=== PATIENT | male | born 1980 | race Caucasian/White ===

== ENCOUNTER 2020-11-04 08:09 | Emergency (ER) | payer OTHER, MEDICAID, SELFPAY ==
[2020-11-04 08:10] VITALS: BP 148/74; PULSE 75; RESP 18; TEMP 36.6; O2SAT 96; BMI 29.8
--- NOTE | 2020-11-04 08:31 | DI.RAD.S_ITS ---
PROCEDURE: XR CHEST 1V INDICATIONS: dysnea TECHNIQUE: One view of the chest was acquired. COMPARISON: [facility], CT, CHEST WITH CONTRAST, 04/11/2013, 13:06. [facility], CR, XR CHEST 2 VIEWS, 04/11/2020, 9:57. [facility], CR, XR CHEST 1 VIEW, 04/06/2020, 19:19. FINDINGS: Surgical changes and devices: None. Lungs and pleura: Lungs are clear. No pleural effusions or pneumothorax. Mediastinum: Mediastinal contours appear normal. Heart size is normal. Bones and chest wall: No suspicious bony lesions. Overlying soft tissues appear unremarkable. IMPRESSION: No acute cardiopulmonary abnormality. Dictated by: Bony Smith M.D. on 11/04/2020 at 8:01 Approved by: Bony Smith M.D. on 11/04/2020 at 8:02
--- NOTE | 2020-11-04 08:35 | ED_ITS ---
HPI - URI/Sore Throat General Chief Complaint: Weakness Stated Complaint: sweats/body feels heavy Time Seen by Provider: 11/04/20 08:10 History of Present Illness HPI Narrative: 40-year-old gentleman with a history of asthma and spontaneous pneumothorax and number of months ago presents with 5 days of fatigue, sweats, fevers, body aches, headache, mild cough and diarrhea. He works as an set up mechanic automatic line and had been going to work prior to Tuesday. He notes that over the past few months, since the spontaneous pneumothorax that did not require a chest tube, his asthma has been a bit worse and he has been using his albuterol inhaler more frequently. He notes that he has lost his inhaler and has not used for the last week. Describes no specific chest pain, palpitations, dyspnea, vomiting, lower extremity edema. Related Data Previous Rx's Medication Instructions Recorded albuterol sulfate 2 puff INHALATION Q6H PRN #8.5 g 11/04/20 beclomethasone dipropionate 1 inh INHALATION BID #10.6 g 11/04/20 Allergies Allergy/AdvReac Type Severity Reaction Status Date / Time Penicillins Allergy Unknown CHILDHOOD Verified 11/04/20 08:33 Review of Systems Review of Systems Narrative: Remainder of review of systems including constitutional, ENT, cardiovascular, respiratory, GI, , musculoskeletal, skin, neurologic and psychiatric systems reviewed and are unremarkable except as noted in HPI. Patient History Medical History Asthma Social History Smoking Status: Current every day smoker Exam Narrative Exam Narrative: General: Mildly ill-appearing but in no acute distress. Able to give a complete and coherent history. Well-nourished well-developed HEENT: Moist mucous membranes, normal sclera with reactive pupils, Neck: No JVD, supple Respiratory: Lungs with mild scattered wheezing no rales no rhonchi. Full and symmetrical air movement Cardiac: Regular rate and rhythm no murmurs no bruits Abdomen: Soft nontender good bowel tones, no flank pain Skin: Warm and dry, no rashes Neurologic: Grossly neurologically intact with no obvious asymmetries or abnormalities Extremities: No trauma, well perfused Psych: Cooperative, appropriate insight and affect Initial Vital Signs Initial Vital Signs: Vital Signs Temperature 97.9 F 11/04/20 08:10 Pulse Rate 75 11/04/20 08:10 Respiratory Rate 18 11/04/20 08:10 Blood Pressure 148/74 H 11/04/20 08:10 Pulse Oximetry 96 11/04/20 08:10 Course Orders Ordered: ED Orders 11/04/20 08:25 COVID19 Stat 11/04/20 08:31 XR chest 1V Stat Discontinued Medications Acetaminophen (Acetaminophen 325 Mg Tablet) 975 mg PO NOW ONE Stop: 11/04/20 08:32 Last Admin: 11/04/20 08:59 Dose: Not Given Documented by: BTONER Acetaminophen (Acetaminophen 325 Mg Tablet) 975 mg PO NOW ONE Stop: 11/04/20 09:01 Last Admin: 11/04/20 09:10 Dose: 975 mg Documented by: [email or web address] Albuterol (Albuterol Hfa 200 Puff/18 Gm Inh (Covid Pos/Vent Pts)) 2 puff INH NOW ONE Stop: 11/04/20 08:32 Last Admin: 11/04/20 09:04 Dose: 2 puff Documented by: JOVAN Vital Signs Vital signs: Vital Signs - 8 hr 11/04/20 08:10 11/04/20 09:09 11/04/20 09:23 Temperature 97.9 F Pulse Rate 75 60 60 Respiratory Rate 18 16 Blood Pressure 148/74 H 127/80 Pulse Oximetry 96 98 97 MDM - URI/Sore Throat Medical Records Attestation: I reviewed the patient's medical records. Lab Data Attestation: I reviewed the patient's lab results. Labs: Lab Results 11/04/20 Range/Units 08:25 COVID-19 PCR Negative (Negative) Imaging Data Chest x-ray: Radiologist's Impression: FINDINGS: Surgical changes and devices: None. Lungs and pleura: Lungs are clear. No pleural effusions or pneumothorax. Mediastinum: Mediastinal contours appear normal. Heart size is normal. Bones and chest wall: No suspicious bony lesions. Overlying soft tissues appear unremarkable. IMPRESSION: No acute cardiopulmonary abnormality. Dictated by: Bony Smith M.D. on 11/04/2020 at 8:01 MDM Narrative Medical decision making narrative: 40-year-old gentleman with upper respiratory symptoms in the setting of asthma for the last 5 days. He is COVID negative. No evidence of hypoxia or significant respiratory distress. No pneumonia and no pneumothorax. Discussed viral syndromes and will discharge him with both QVAR and albuterol inhalers and recommend that he follow-up with his primary care physician in the next weeks regarding his asthma management. He is safe for home discharge Discharge Plan Departure Patient Disposition: Home Clinical Impression: Acute upper respiratory infection Asthma Qualifiers: Asthma severity: moderate Asthma persistence: persistent Asthma complication type: with acute exacerbation Qualified Code(s): J45.41 - Moderate persistent asthma with (acute) exacerbation Instructions: DI for Asthma -- Adult Activity Restrictions/Additional Instructions: Thank you for coming in today You do have an upper respiratory infection and it is not COVID. Your chest x- ray is reassuring. There is no evidence of a bacterial pneumonia and no recurrent pneumothorax. You are likely going to improve no matter what we do today. Treating your asthma a bit more effectively may get to feeling better faster. I am going to suggest that you use an inhaled steroid, QVAR/beclomethasone daily. Using your spacer do 2 puffs of albuterol followed by a single puff of the QVAR every morning and every evening followed by rinsing her mouth out with water. You may find that as you begin to feel better that you do not need her albuterol and the QVAR puff in the morning and the evening is enough to keep your asthma nicely controlled. If you feel like you are getting worse over the next few days or you feel like you of completely gotten better and then developed a fever and productive cough you do need to be seen again. I would recommend that you follow-up with your primary care physician in the next couple of weeks regarding your asthma. I have given you a copy of the radiology interpretation of your x-ray to share with your primary care physician in follow-up after your recent pneumothorax Prescriptions: New albuterol sulfate 90 mcg/actuation HFA aerosol inhaler 2 puff inhalation Q6H PRN (Reason: shortness of breath or wheezing) Qty: 8.5 RF: 3 beclomethasone dipropionate 80 mcg/actuation HFA aerosol breath activated 1 inh inhalation BID Qty: 10.6 RF: 3 Referrals: Hitesh Peace DO [Primary Care Provider] -
[2020-11-04 08:46] LABS: COVID19 -Nasal RAPID Negative (Negative)
[2020-11-04] MEDS: ALBUTEROL HFA 200 PUFF/18 GM INH (COVID POS/VENT PTS) INH (09:04)
[2020-11-04 09:09] VITALS: PULSE 60; RESP 16; O2SAT 98
[2020-11-04] MEDS: ACETAMINOPHEN 325 MG TABLET 975 MG PO (09:10)
[2020-11-04 09:23] VITALS: BP 127/80; PULSE 60; O2SAT 97
== END 2020-11-04 09:24 | disposition home or self-care (01) ==
LOC: ED 09:25
PROVIDERS: Emergency Provider Emergency Medicine; PCP Hospitalist
DX: J06.9 Acute upper respiratory infection, unspecified (principal); J45.41 Moderate persistent asthma with (acute) exacerbation; R19.7 Diarrhea, unspecified; R53.83 Other fatigue
CPT/HCPCS: 71045; 87635; 94640; 99281; 99283; A9270

== ENCOUNTER 2025-01-16 13:57 | Emergency (ER) | payer OTHER, SELFPAY ==
[2025-01-16 14:01] VITALS: BP 119/83; PULSE 78; RESP 16; TEMP 36.4; O2SAT 98; BMI 33.0
--- NOTE | 2025-01-16 14:14 | DI.RAD.S_ITS ---
PROCEDURE: XR RIBS BI MIN 4V W CXR1V INDICATIONS: bilateral rib pain TECHNIQUE: 4 views of the ribs were acquired, along with a single view chest. COMPARISON: None. FINDINGS: Surgical changes and devices: None. Bones and chest wall: No fractures or dislocations. Chronic appearing left-sided rib fractures are noted. No suspicious bony lesions. Overlying soft tissues appear unremarkable. Lungs and pleura: No pleural effusions or pneumothorax. Lungs appear clear. Mediastinum: Mediastinal contours appear normal. Heart size is normal. IMPRESSION: No displaced rib fracture or pneumothorax. Dictated by: Min Kimble M.D. on 01/16/2025 at 14:47 Approved by: Min Kimble M.D. on 01/16/2025 at 14:48
[2025-01-16 16:10] VITALS: BP 133/86; PULSE 71; O2SAT 98
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
[2025-01-16 16:30] VITALS: PULSE 62; O2SAT 94
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
[2025-01-16 17:00] VITALS: PULSE 58; RESP 16; O2SAT 95
[2025-01-16] MEDS: methocarbamoL 500 MG TABLET 750 MG PO (17:00)
[2025-01-16] MEDS: ACETAMINOPHEN 325 MG TABLET 975 MG PO (17:00)
== END 2025-01-16 17:20 | disposition home or self-care (01) ==
PROVIDERS: Emergency Provider Emergency Medicine; PCP Hospitalist
DX: M94.0 Chondrocostal junction syndrome [Tietze] (principal)
CPT/HCPCS: 71111; 99283